=== PATIENT | female | born 1950 | race Caucasian/White ===

== ENCOUNTER → 2024-07-02 13:09 | Outpatient (BNVA) | payer MEDICARE, BC, SELFPAY | PROVIDERS: PCP Family Medicine; Referring Provider Family Medicine; Visit Provider Podiatrist | DX: B35.1 Tinea unguium (principal); L60.3 Nail dystrophy; L84 Corns and callosities; L85.8 Other specified epidermal thickening | CPT/HCPCS: 99214 ==

== ENCOUNTER → 2024-10-29 12:52 | Outpatient (BNVA) | payer MEDICARE, BC, SELFPAY | PROVIDERS: PCP Family Medicine; Referring Provider Family Medicine; Visit Provider Podiatrist | DX: L60.3 Nail dystrophy (principal); B35.1 Tinea unguium; L84 Corns and callosities | CPT/HCPCS: 99213 ==